=== PATIENT | male | born 1995 | race African-American/Black ===

== ENCOUNTER 2021-11-16 10:35 | Emergency (ER) | payer SELFPAY ==
[~2021-11-16] VITALS: Ht 180.3 cm; Wt 90.0 kg
[2021-11-16] MEDS ORDERED: METHYLPREDNISOLONE SOD SUCC 125 MG/2 ML VIAL IV STA (11:06)
[2021-11-16] MEDS ORDERED: IPRATROPIUM BROMIDE (0.02%) 0.5MG/2.5ML NEB HHN STA (11:06)
[2021-11-16] MEDS ORDERED: MAGNESIUM 2 G PREMIX 50 ML IV ONE (11:15)
[2021-11-16 11:22] LABS: BASOPHILS % 1.2 % (0.0-2.0); EOSINOPHILS % 7.3 % (0.0-5.0); HEMATOCRIT. 45.1 % (42.0-52.0); HEMOGLOBIN. 15.1 g/dL (14.0-18.0); LYMPHOCYTES % 19.9 % (20.0-50.0); MEAN CORPUSCULAR HEMOGLOBIN 31.8 pg (28.0-32.0); MEAN CORPUSCULAR VOLUME 94.8 fL (80.0-94.0); MEAN PLATELET VOLUME 9.8 fl (7.4-10.4); MONOCYTES % 8.9 % (2.0-8.0); NEUTROPHILS % 62.7 % (40.0-76.0); PLATELET 211 x1000/uL (130-400); RED BLOOD CELL COUNT 4.76 mill/uL (4.7-6.1); RED CELL DISTRIBUTION WIDTH 13.5 % (11.6-14.6)
[2021-11-16 11:27] LABS: CHLORIDE 105 mEq/L (98-107)
[2021-11-16] MEDS: ALBUTEROL (0.083%) 2.5MG/3ML NEB HHN SCH ×2 (12:01→13:35)
[2021-11-16] MEDS ORDERED: P20 MT (14:30)
[2021-11-16] MEDS ORDERED: ALBU90AE INH (14:30)
[2021-11-16 15:48] VITALS: BP 120/62
== END 2021-11-16 16:05 | disposition home or self-care (01) ==
LOC: ER 10:57
DX: J45.901 Unspecified asthma with (acute) exacerbation (principal); F17.290 Nicotine dependence, other tobacco product, uncomplicated; J45.909 Unspecified asthma, uncomplicated; Z20.822 Contact with and (suspected) exposure to COVID-19
CPT/HCPCS: 36415; 71045; 80053; 84484; 85025; 87426; 93005; 96365; 96375; 99285; J2930; J3475

== ENCOUNTER 2021-11-16 17:06 | Emergency (ER) | payer SELFPAY ==
[~2021-11-16] VITALS: Ht 188 cm; Wt 105.0 kg
[~2021-11-16 17:06] MED LIST: ALBU90AE INH; P20 MT
[2021-11-16 17:19] VITALS: BP 133/83
[2021-11-16] MEDS ORDERED: IPRATROPIUM BROMIDE (0.02%) 0.5MG/2.5ML NEB HHN STA ×2 (17:27→17:37)
[2021-11-16] MEDS ORDERED: ALBUTEROL (0.083%) 2.5MG/3ML NEB HHN STA ×2 (17:27→17:37)
== END 2021-11-16 20:35 | disposition home or self-care (01) ==
LOC: ER 17:06
DX: J45.901 Unspecified asthma with (acute) exacerbation (principal)
CPT/HCPCS: 99281

== ENCOUNTER 2022-01-02 23:56 | Emergency (ER) | payer MEDICAID ==
[~2022-01-02] VITALS: Ht 180.3 cm; Wt 77.0 kg
[2022-01-03] MEDS ORDERED: PREDNISONE 20MG TABLET PO STA (00:08)
[2022-01-03] MEDS ORDERED: IPRATROPIUM BROMIDE (0.02%) 0.5MG/2.5ML NEB HHN STA (00:08)
[2022-01-03] MEDS ORDERED: ALBUTEROL (0.083%) 2.5MG/3ML NEB HHN STA (00:08)
[2022-01-03 01:45] VITALS: BP 133/80
[2022-01-03] MEDS ORDERED: P20 MT ×2 (01:53→05:34)
[2022-01-03] MEDS ORDERED: ALBU90AE INH ×2 (01:53→05:34)
[2022-01-03] MEDS ORDERED: BUDE0.25 NEB (05:34)
[2022-01-03] MEDS ORDERED: ALBU2.5V13 NEB (05:34)
== END 2022-01-03 02:00 | disposition home or self-care (01) ==
LOC: ER 01-03 00:06
DX: J45.901 Unspecified asthma with (acute) exacerbation (principal); F17.290 Nicotine dependence, other tobacco product, uncomplicated; Z76.0 Encounter for issue of repeat prescription; Z71.6 Tobacco abuse counseling
CPT/HCPCS: 93005; 94640; 99283; 99406; J7512; Z7610

== ENCOUNTER 2022-01-03 02:18 | Emergency (ER) | payer MEDICAID ==
[~2022-01-03] VITALS: Ht 190.5 cm; Wt 104.0 kg
[2022-01-03] MEDS ORDERED: IPRATROPIUM BROMIDE (0.02%) 0.5MG/2.5ML NEB HHN STA ×2 (02:37→04:53)
[2022-01-03] MEDS ORDERED: ALBUTEROL (0.083%) 2.5MG/3ML NEB HHN STA ×2 (02:37→04:53)
[2022-01-03] MEDS ORDERED: P20 MT (05:34)
[2022-01-03] MEDS ORDERED: ALBU90AE INH (05:34)
[2022-01-03] MEDS ORDERED: ALBU2.5V13 NEB (05:34)
[2022-01-03] MEDS ORDERED: BUDE0.25 NEB (05:34)
[2022-01-03 05:59] VITALS: BP 127/51
== END 2022-01-03 06:00 | disposition home or self-care (01) ==
LOC: ER 02:18
DX: J45.901 Unspecified asthma with (acute) exacerbation (principal)
CPT/HCPCS: 94640; 99284; Z7610

== ENCOUNTER 2022-01-11 23:21 | Emergency (ER) | payer MEDICAID ==
[~2022-01-11] VITALS: Ht 185.4 cm; Wt 82.0 kg
[~2022-01-11 23:21] MED LIST changes: +ALBU2.5V13 NEB; +BUDE0.25 NEB
[2022-01-12] MEDS ORDERED: MAGNESIUM 2 G PREMIX 50 ML IV STA (00:20)
[2022-01-12] MEDS ORDERED: METHYLPREDNISOLONE SOD SUCC 125 MG/2 ML VIAL IV STA (00:20)
[2022-01-12] MEDS ORDERED: ALBUTEROL (0.083%) 2.5MG/3ML NEB HHN STA (00:20)
[2022-01-12] MEDS ORDERED: IPRATROPIUM BROMIDE (0.02%) 0.5MG/2.5ML NEB HHN STA (00:20)
[2022-01-12 03:24] VITALS: BP 143/89
[2022-01-12] MEDS ORDERED: PRED10TA MT (05:22)
== END 2022-01-12 05:36 | disposition home or self-care (01) ==
LOC: ER 23:21
DX: J45.901 Unspecified asthma with (acute) exacerbation (principal)
CPT/HCPCS: 94644; 96365; 96375; 99291; J2930; J3475; Z7610

== ENCOUNTER 2022-04-17 13:41 | Emergency (ER) | payer MEDICAID ==
[~2022-04-17] VITALS: Ht 182.9 cm; Wt 66.0 kg
[~2022-04-17 13:41] MED LIST changes: +PRED10TA MT
[2022-04-17] MEDS ORDERED: ALBU90AE INH (16:22)
[2022-04-17 18:00] VITALS: BP 108/77
== END 2022-04-17 18:00 ==
LOC: ER 13:41
DX: Z76.0 Encounter for issue of repeat prescription (principal); J45.909 Unspecified asthma, uncomplicated
CPT/HCPCS: 99283